=== PATIENT | male | born 1955 ===

== ENCOUNTER 2022-03-16 05:59 | Inpatient (IN) ==
[~2022-03-16 05:59] MED LIST: Ertapenem 1 GM in NS 0.9% 50 ML BAG IVPB SCH
[2022-03-16] MEDS ORDERED: Buffered Lidocaine 1% SYRIN 1 ml INTRADERM ONE (06:00)
[2022-03-16] MEDS ORDERED: Lactated Ringers 1000 ml BAG 1,000 ML IV SCH (06:00)
[2022-03-16] MEDS ORDERED: Heparin 5000 UNITS/ML 1 mL VIAL ONE (06:57)
[2022-03-16] MEDS ORDERED: Midazolam 2 mg/2 ml VIAL 1 mg/ml 2 ml VIAL (2 mg) ONE (07:12)
[2022-03-16] MEDS ORDERED: Lidocaine 2% PF 5 ML VIAL ONE (07:12)
[2022-03-16] MEDS ORDERED: Rocuronium 50 mg VIAL 10 mg/ml 5 ml VIAL (50 mg) ONE ×4 (07:12→10:16)
[2022-03-16] MEDS ORDERED: Propofol 10 MG/ML 20 ML BTL ONE (07:12)
[2022-03-16] MEDS ORDERED: fentaNYL 250 mcg/5 ml 50 MCG/ML 5 ml VIAL (250 MCG) ONE (07:12)
[2022-03-16] MEDS ORDERED: Ondansetron 4 mg VIAL 2 MG/ML 2 ml VIAL ONE ×2 (07:12→10:20)
[2022-03-16] MEDS ORDERED: Lidocaine 4 MG/ML IV PREMIX 2,000 MG/500 ML BAG IV ONE (07:31)
[2022-03-16] MEDS ORDERED: Acetaminophen IV 1 GM/100ML 1,000 MG/100 ML BAG IV ONE (08:50)
[2022-03-16] MEDS ORDERED: Dexamethasone IV 4 MG/ML VIAL 1 ml VIAL ONE ×3 (10:20)
[2022-03-16] MEDS ORDERED: fentaNYL 100 mcg/2 ml 50 MCG/ML VIAL ONE ×2 (10:45→12:08)
[2022-03-16] MEDS ORDERED: Sugammadex 500 MG/5 ML 5 ml VIAL IV PUSH ONE (11:23)
[2022-03-16] MEDS ORDERED: Ondansetron 4 mg VIAL 2 MG/ML 2 ml VIAL IV PRN (11:45)
[2022-03-16] MEDS ORDERED: Naloxone 0.4 mg VIAL 0.4 mg/ml 1 ml VIAL IV PRN (11:46)
[2022-03-16] MEDS ORDERED: Haloperidol 5 mg/ml SDV IV/IM 5 MG/ML AMP IV SLOW PU PRN (11:46)
[2022-03-16] MEDS ORDERED: Acetaminophen IV 1 GM/100ML 1,000 MG/100 ML BAG IV SCH (12:00)
[2022-03-16] MEDS: fentaNYL 100 mcg/2 ml 50 MCG/ML VIAL IV PRN ×4 (12:11→12:37)
[2022-03-16] MEDS ORDERED: HYDROmorphone 0.5 MG/0.5 ML SYRINGE IV SLOW PU PRN (14:10)
[2022-03-16] MEDS ORDERED: hydrALAZINE 20 mg/ml 1 ML Vial IV IV SLOW PU PRN (17:28)
[2022-03-17 06:30] LABS: ABS Lymphocytes 1.1 10^3/ul (1.0-4.8); ABS Neutrophils 6.7 10^3/ul (1.5-7.7); Eosinophil % 0.5 %; Hematocrit 41 % (42-52); Hemoglobin 14.2 g/dL (14.0-18.0); Lymphocyte % 12.4 %; Mean Corpuscular HGB Conc 35 g/dL (31-36); Mean Corpuscular Hemoglobin 31 pg (27-31); Mean Corpuscular Volume 88 fL (80-94); Mean Platelet Volume 8.8 fL (7.4-10.4); Platelet Count 194 10^3/uL (150-450); Red Blood Count 4.66 10^6 /uL (4.18-5.48); Red Cell Distribution Width 13 % (10-15); White Blood Count 8.8 10^3/uL (3.5-10.8)
[2022-03-17 06:48] LABS: Calcium 8.9 mg/dL (8.6-10.3); Creatinine, Serum 0.91 mg/dL (0.67-1.17); Potassium 4.4 mmol/L (3.5-5.0)
[2022-03-17] MEDS ORDERED: Acetaminophen IV 1 GM/100ML 1,000 MG/100 ML BAG IV PRN (07:20)
[2022-03-17] MEDS ORDERED: HYDROmorphone 0.5 MG/0.5 ML SYRINGE IV SLOW PU PRN (07:21)
[2022-03-17] MEDS: Enoxaparin 40 MG/0.4 ML SYR SUBCUT SCH (08:10)
[2022-03-17] MEDS ORDERED: Pneumococcal Vac 23-Polyvalent IM ONE (10:00)
[2022-03-18] MEDS: Enoxaparin 40 MG/0.4 ML SYR SUBCUT SCH (08:17)
[2022-03-18 08:24] LABS: Hematocrit 40 % (42-52); Hemoglobin 13.8 g/dL (14.0-18.0); Mean Corpuscular HGB Conc 35 g/dL (31-36); Mean Corpuscular Hemoglobin 31 pg (27-31); Mean Corpuscular Volume 89 fL (80-94); Mean Platelet Volume 8.5 fL (7.4-10.4); Platelet Count 157 10^3/uL (150-450); Red Blood Count 4.43 10^6 /uL (4.18-5.48); Red Cell Distribution Width 13 % (10-15); White Blood Count 4.9 10^3/uL (3.5-10.8)
[2022-03-18 09:05] LABS: Calcium 9.2 mg/dL (8.6-10.3); Potassium 4.7 mmol/L (3.5-5.0)
[2022-03-18 11:01] LABS: Creatinine, Serum 0.97 mg/dL (0.67-1.17); eGFR CKD-EPI 86.1 (>60)
[2022-03-18 11:25] VITALS: BP 128/75
== END 2022-03-18 11:52 | disposition home or self-care (01) | DRG 331 ==
LOC: AA 05:59 → SSU 14:01
PROVIDERS: ADMIT Surgery; ATTEND Surgery